=== PATIENT | female | born 1990 | race Caucasian/White ===

== ENCOUNTER 2016-11-21 16:11 | Emergency (ER) | payer SELFPAY ==
[~2016-11-21] VITALS: Ht 165.1 cm; Wt 50.0 kg
[2016-11-21 16:12] VITALS: BP 116/75; PULSE 114; RESP 15; TEMP 98.8; O2SAT 99
--- NOTE | 2016-11-21 17:55 | PD ---
HPI Chief Complaint: Medical Clearance Time Seen by Provider: 17:53 Travel History International Travel<30 days: No Contact w/Intl Traveler<30days: No Traveled to known affect area: No History of Present Illness HPI 26-year-old female presents to the emergency department requesting STD testing, HIV testing and generalized lab work. Patient states that she needs this done right now. She has no symptoms to justify why she may need this right now. She tells me that she does not have an ID or Social Security card and cannot get this done anywhere else. History Past Medical Histgory Medical History: Denies Significant Hx Social History Alcohol Use: Yes Tobacco Use: Yes Review of Systems Except as stated in HPI: all other systems reviewed are Neg Physical Exam Narrative GENERAL: Well-nourished female patient, ambulatory, agitated, but in no acute distress. SKIN: Focused skin assessment warm/dry. HEAD: Atraumatic. Normocephalic. EYES: Pupils equal and round. No scleral icterus. No injection or drainage. ENT: No nasal bleeding or discharge. Mucous membranes pink and moist. NECK: Trachea midline. No JVD. CARDIOVASCULAR: Tachycardic rate and rhythm. No murmur appreciated. RESPIRATORY: No accessory muscle use. Clear to auscultation. Breath sounds equal bilaterally. GASTROINTESTINAL: Abdomen soft, non-tender, nondistended. Hepatic and splenic margins not palpable. MUSCULOSKELETAL: No obvious deformities. No clubbing. No cyanosis. No edema. NEUROLOGICAL: Awake and alert. No obvious cranial nerve deficits. Motor grossly within normal limits. Normal speech. Data Data Last Documented VS Vital Signs Date Time Temp Pulse Resp B/P (MAP) Pulse Ox O2 Delivery O2 Flow Rate FiO2 11/21/16 16:12 98.8 114 15 116/75 (89) 99 MDM Medical Screen Exam Complete: Yes Emergency Medical Condition: No Differential Diagnosis requesting std testing/ hiv testing/ bloodwork- asymptomatic Narrative Course 26-year-old female presents to emergency department requesting STD testing, HIV test, and generalized blood work. Patient has no active symptoms to justify doing this emergently. I explained her that I could do gonorrhea and chlamydia here but I would not be doing a full panel of lab work here. The patient became very irritated and left the room. This time there are no urgent or emergent needs for medical intervention identified. A medical screening exam was performed: At the time of evaluation the presenting medical condition was determined not to be of an emergent nature. The patient was given the option of receiving additional care, but declined. Patient was given options for additional community resources from which to obtain care. The Patient Has Been advised to seek medical attention for their presenting complaint. The patient has been advised to return to the ER at any time if an emergent condition develops. Primary Impression: Encounter for medical screening examination Condition: Stable Marquita Baldwin Nov 21, 2016 17:55
== END 2016-11-21 18:05 | disposition left against medical advice (07) ==
LOC: NEPD 16:11
DX: Z20.2 Contact with and (suspected) exposure to infections with a predominantly sexual mode of transmission (principal)
CPT/HCPCS: 99281

== ENCOUNTER 2017-02-08 11:49 | Emergency (ER) | payer SELFPAY ==
[2017-02-08 11:53] VITALS: BP 120/70; PULSE 84; RESP 16; TEMP 98; O2SAT 99
[2017-02-08] MEDS ORDERED: BACI500O9 TOPICAL (12:39)
--- NOTE | 2017-02-08 12:39 | PD ---
HPI Chief Complaint: Medical Clearance Time Seen by Provider: 12:18 Travel History International Travel<30 days: No Contact w/Intl Traveler<30days: No Traveled to known affect area: No History of Present Illness HPI 26-year-old female patient with history of no significant past medical issues, states that she is homeless here from [place] for several weeks now, has been having several days' history of bilateral foot pain, feels like her toes are getting swollen and red. She has been walking around in flip-flops. She denies any fevers or any other issues. Modifying Factors: None Associated Signs & Symptoms: Bilateral toe pain, redness, swelling Risk Factors: Homeless, walking around in flip-flops [facility] Past Medical History Anxiety: Yes Diminished Hearing: No Psychiatric: Yes (PTSD ) Immunizations Current: No Tetanus Vaccination: Unknown Influenza Vaccination: No ?: Not LMP: now : 4 Para: 2 Miscarriage: 2 : 0 Ectopic : Yes Past Surgical History Surgical History: No Previous Surgery Section: Yes (X 1, PARTIAL HYSTERECTOMY ) Social History Alcohol Use: Yes (occ) Tobacco Use: Yes Substance Use: Yes (MARIJUANA) Allergies-Medications (Allergen,Severity, Reaction): Coded Allergies: No Known Allergies (Unverified , 02/08/17) Reported Meds & Prescriptions Reported Meds & Active Scripts Active No Active Prescriptions or Reported Medications Review of Systems Except as stated in HPI: all other systems reviewed are Neg Physical Exam Narrative GENERAL: Well-developed young white female patient currently in no acute distress. Awake and oriented 3. SKIN: Focused skin assessment warm/dry. There is mild erythema of all the toes with small laceration at the plantar surface of both second toes. No underlying fluctuance. HEAD: Atraumatic. Normocephalic. EYES: Pupils equal and round. No scleral icterus. No injection or drainage. ENT: No nasal bleeding or discharge. Mucous membranes pink and moist. NECK: Trachea midline. No JVD. CARDIOVASCULAR: Regular rate and rhythm. No murmur appreciated. RESPIRATORY: No accessory muscle use. Clear to auscultation. Breath sounds equal bilaterally. GASTROINTESTINAL: Abdomen soft, non-tender, nondistended. Hepatic and splenic margins not palpable. MUSCULOSKELETAL: No obvious deformities. No clubbing. No cyanosis. No edema. NEUROLOGICAL: Awake and alert. No obvious cranial nerve deficits. Motor grossly within normal limits. Normal speech. PSYCHIATRIC: Appropriate mood and affect; insight and judgment normal. Data Data Last Documented VS Vital Signs Date Time Temp Pulse Resp B/P (MAP) Pulse Ox O2 Delivery O2 Flow Rate FiO2 02/08/17 11:53 98.0 84 16 120/70 (87) 99 MDM Medical Decision Making Medical Screen Exam Complete: Yes Emergency Medical Condition: Yes Medical Record Reviewed: Yes Differential Diagnosis Dermatitis versus cellulitis versus blisters Narrative Course I do not think that there is significant cellulitis here. However, she has small cuts on both toes which do not appear significantly infected, shallow and does not require suturing. Her feet do have some dirt and her wounds do require some cleaning. She is given washcloth to clean the areas. The plan would be to give her antibiotic ointment. She has been given contact homeless coalition. Return for new issues as needed. The plan has been discussed with her and she states understanding. Diagnosis Primary Impression: Toe laceration Med/Other Pt SpecificInfo: Prescription(s) given Scripts Bacitracin Topical (Bacitracin Topical) 500 Unit/Gm Oint 1 APPLIC TOPICAL BID for Infection, #30 GM 0 Refills Prov: Charo Hendricks MD 02/08/17 Disposition: 01 DISCHARGE HOME Condition: Stable Charo Hendricks MD Feb 08, 2017 12:39
[2017-02-08] MEDS ORDERED: BACITRACIN TOP OINT 15 GM TUBE TOPICAL ONE (12:45)
== END 2017-02-08 12:54 | disposition home or self-care (01) ==
LOC: NEPD 11:49
DX: S91.116A Laceration without foreign body of unspecified lesser toe(s) without damage to nail, initial encounter (principal); F43.10 Post-traumatic stress disorder, unspecified; X58.XXXA Exposure to other specified factors, initial encounter; Z59.0 Homelessness; Z72.0 Tobacco use
CPT/HCPCS: 99283